=== PATIENT | male | born 1950 | race Asian ===

== ENCOUNTER 2020-04-23 17:12 | Observation (INO) | payer MEDICARE ==
[~2020-04-23] VITALS: Ht 167.6 cm; Wt 65.0 kg
--- NOTE | 2020-04-23 17:32 | PHYS DOC ---
General Adult EDM: Chief Complaint: NEURO SYMPTOMS/DEFICITS HPI: HPI: The history was obtained from the patient's daughter. Patient is a 69-year-old male with PMH TIA, diabetes who presents with a chief complaint of facial droop. Daughter states that the patient's last known well was approximately 30 hours prior to arrival. She states that her mother noticed left-sided facial droop and the patient. She states just prior to that he did have a fall. He does take Plavix daily for history of TIA. She states he does have some hearing loss and slurred speech at baseline from his previous TIA. She denies any complaints of chest pain or shortness of breath. She denies any signs of upper extremity or lower extremity weakness. She states he has been mildly confused not knowing time. She denies any lethargy. Denies syncope. Denies vomiting. Denies any changes to his medications. Denies any fevers. Denies any known exposure to c oronavirus. Denies any recent travel, camping, or hiking. (JAELYN JAEGER DO) Review of Systems: Review of Systems: Constitutional: Denies fever or chills Eyes: Denies change in visual acuity HENT: Denies nasal congestion or sore throat Respiratory: Denies cough or shortness of breath Cardiovascular: Denies chest pain or edema GI: Denies abdominal pain, nausea, vomiting, bloody stools or diarrhea : Denies dysuria Musculoskeletal: Denies back pain or joint pain Integument: Denies rash Neurologic: Positive for facial droop, aphasia Endocrine: Denies polyuria or polydipsia Lymphatic: Denies swollen glands Psychiatric: Denies depression or anxiety (JAELYN JAEGER DO) Heart Score: Risk Factors: Risk Factors: DM, Current or recent (<one month) smoker, HTN, HLP, family history of CAD, obesity. Risk Scores: Score 0 - 3: 2.5% MACE over next 6 weeks - Discharge Home Score 4 - 6: 20.3% MACE over next 6 weeks - Admit for Clinical Observation Score 7 - 10: 72.7% MACE over next 6 weeks - Early Invasive Strategies (JAELYN JAEGER DO) Physical Exam: PE: Constitutional: Well developed, well nourished, no acute distress, non-toxic appearance. [] HENT: Normocephalic, atraumatic, bilateral external ears normal, oropharynx moist, no oral exudates, nose normal. [] Eyes: PERRLA, EOMI, conjunctiva normal, no discharge. [] Neck: Normal range of motion, no tenderness, supple, no stridor. [] Cardiovascular:Heart rate regular rhythm, no murmur [] Lungs & Thorax: Bilateral breath sounds clear to auscultation [] Abdomen: Bowel sounds normal, soft, no tenderness, no masses, no pulsatile masses. [] Skin: Warm, dry, no erythema, no rash. [] Back: No tenderness, no CVA tenderness. [] Extremities: No tenderness, no cyanosis, no clubbing, ROM intact, no edema. [] Neurologic: Alert and oriented x2 only to person and place. Negative pronator drift. Plus 5 out of 5 motor strength in all 4 extremities. Partial gaze deviation to the left. No hemineglect appreciated however. Paralysis noted to the left face with forehead sparing. Psychologic: Affect normal, judgement normal, mood normal. [] (JAELYN JAEGER [facility]) Current Patient Data: Labs: Laboratory Tests Test 04/23/20 17:22 Glucose (Fingerstick) 132 mg/dL (70-99) H Vital Signs: Vital Signs Date Time Temp Pulse Resp B/P (MAP) Pulse Ox O2 Delivery O2 Flow Rate FiO2 04/23/20 17:35 98.0 69 14 154/77 (102) 98 Room Air (JAELYN JAEGER [facility]) Labs: Laboratory Tests Test 04/23/20 17:22 04/23/20 17:48 Glucose (Fingerstick) 132 mg/dL (70-99) White Blood Count 5.8 x10^3/uL (4.0-11.0) Red Blood Count 4.62 x10^6/uL (4.30-5.70) Hemoglobin 14.7 g/dL (13.0-17.5) Hematocrit 43.2 % (39.0-53.0) Mean Corpuscular Volume 93 fL (79-100) Mean Corpuscular Hemoglobin 32 pg (25-35) Mean Corpuscular Hemoglobin Concent 34 g/dL (31-37) Red Cell Distribution Width 14.1 % (11.5-14.5) Platelet Count 219 x10^3/uL (140-400) Neutrophils (%) (Auto) 63 % (31-73) Lymphocytes (%) (Auto) 28 % (24-48) Monocytes (%) (Auto) 7 % (0-9) Eosinophils (%) (Auto) 1 % (0-3) Basophils (%) (Auto) 1 % (0-3) Neutrophils # (Auto) 3.6 x10^3uL (1.8-7.7) Lymphocytes # (Auto) 1.6 x10^3/uL (1.0-4.8) Monocytes # (Auto) 0.4 x10^3/uL (0.0-1.1) Eosinophils # (Auto) 0.1 x10^3/uL (0.0-0.7) Basophils # (Auto) 0.1 x10^3/uL (0.0-0.2) Prothrombin Time 10.1 SEC (9.4-11.4) Prothromb Time International Ratio 1.0 (0.9-1.1) Activated Partial Thromboplast Time 23 SEC (23-33) Sodium Level 136 mmol/L (136-145) Potassium Level 4.3 mmol/L (3.5-5.1) Chloride Level 101 mmol/L (98-107) Carbon Dioxide Level 25 mmol/L (21-32) Anion Gap 10 (6-14) Blood Urea Nitrogen 15 mg/dL (8-26) Creatinine 1.1 mg/dL (0.7-1.3) Estimated GFR (Cockcroft-Gault) 66.2 BUN/Creatinine Ratio 14 (6-20) Glucose Level 135 mg/dL (70-99) Lactic Acid Level 2.3 mmol/L (0.4-2.0) Calcium Level 9.2 mg/dL (8.5-10.1) Total Bilirubin 0.8 mg/dL (0.2-1.0) Aspartate Amino Transf (AST/SGOT) 24 U/L (15-37) Alanine Aminotransferase (ALT/SGPT) 39 U/L (16-63) Alkaline Phosphatase 56 U/L (46-116) Troponin I Quantitative < 0.017 ng/mL (0-0.055) Total Protein 7.9 g/dL (6.4-8.2) Albumin 4.0 g/dL (3.4-5.0) Albumin/Globulin Ratio 1.0 (1.0-1.7) Salicylates Level < 2.8 mg/dL (2.8-20.0) Salicylate Last Dose Date None Salicylate Last Dose Time None Acetaminophen Level < 2.0 mcg/mL (10-30) Acetaminophen Last Dose Date None Acetaminophen Last Dose Time None Ethyl Alcohol Level < 10 mg/dL (0-10) (IVETH GUERRERO DO) EKG: EKG: [] EKG consistent with normal sinus rhythm. Left axis noted. Left anterior fascicular block present. No acute ischemic changes appreciated. Ventricular rate of 68 bpm. (JAELYN JAEGER DO) Radiology/Procedures: Radiology/Procedures: [][place] [address] IMAGING REPORT Signed PATIENT: JUAN R LEMON ACCOUNT: [id number] : 1950 LOCATION: ER AGE: 69 SEX: M EXAM STATUS: REG ER ORD. PHYSICIAN: JAELYN JAEGER DO REASON: L facial droop x 30 hours PROCEDURE: CT CODE STROKE HEAD WO EXAM: CT Head without IV contrast INDICATION: Reason: L facial droop x 30 hours / Spl. Instructions: / History: TECHNIQUE: Multi-detector row CT images were obtained of the head without the use of IV contrast. All CT scans performed at this facility utilize dose optimization techniques as appropriate to the exam, including the following: Automated exposure control and adjustment of the mA and/or KV according to patient size (this includes techniques or standardized protocols for targeted exams where dose is indication/reason for exam). COMPARISON: None FINDINGS: BRAIN PARENCHYMA: No evidence of acute intraparenchymal hemorrhage or infarct. Generalized parenchymal volume loss and white matter low density lateral chronic ischemic microvascular disease. Tiny chronic appearing lacunar infarct in the left basal ganglia. VENTRICLES & EXTRA-AXIAL SPACES: Ventricles are within normal limits. Basilar cisterns are patent. No pathologic extra-axial fluid collection or mass. Intracranial vascular calcifications are present, best appreciated in the bilateral vertebral arteries. ORBITS: Orbital contents are unremarkable. SINUSES: Visualized paranasal sinuses and mastoid air cells are clear. OSSEOUS & SOFT TISSUES: Calvarium and skull base are intact. Right cochlear implant is present, with associated streak artifact. IMPRESSION: No acute intracranial pathology. FOR INTERNAL CODING PURPOSES Critical result: Findings discussed with JAELYN JAEGER at 04/23/2020 5:39 PM. RESULT CODE: (C) Electronically signed by: Nixon Charles MD (04/23/2020 5:41 PM) [id number] DICTATED AND SIGNED BY: NIXON CHARLES MD DATE: 04/23/201740 CC: AMALIA LUTHER TELEVISION EQUIPMENT OPERATOR; JAELYN JAEGER DO ~ (JAELYN JAEGER DO) Course & Med Decision Making: Course & Med Decision Making Pertinent Labs and Imaging studies reviewed. (See chart for details) Patient is a 69-year-old male who presents with chief complaint of facial droop. Last known well was 30 hours prior to arrival. CT head imaging reveals no acute abnormality. Initial NIH of 8. Not a TPA candidate. Not in the window for large vessel occlusion retrieval. Basic labs are pending at this time. I have signed out the patient's emergency department care to Dr. Guerrero. We discussed the history, physical exam findings, completed and pending laboratory results and imaging studies. We have also discussed the current treatment plan and expected clinical course. Please refer to chart for the patient's remaining emergency department course, final disposition, and clinical impression(s). (JAELYN JAEGER DO) Course & Med Decision Making Comprehensive signout obtained from off going physician I personally saw and evaluated patient with daughter present who was primary historian, I repeated certain aspects of the history and physical examination Patient continues to have left lower facial paralysis but has somewhat improved since arrival to our ER per daughter I discussed grossly benign diagnostic work-up obtained in our ER today but stressed need for continued medical and neuro observation in a hospitalized setting, daughter was agreeable I called Dr. Andrea, neurologist, and case discussed. He requested CTA head and neck be performed and agreed to admission to [facility] so he can personally see and evaluate patient tomorrow morning On-call hospitalist, Dr. Gu, contacted and case discussed. I discussed my conversation with neurologist and need for admission and he was agreeable. Patient on metformin, Plavix, and 81 mg aspirin daily at this time only. This will be reviewed by neurologist tomorrow morning I discussed my conversations with daughter. She was amenable to admission. She is POA and confirm that he is DNR status CTA head and neck to be performed prior to ER departure to [facility] for further medical and neurological observation and care (IVETH GUERRERO DO) Dragon Disclaimer: Dragon Disclaimer: This electronic medical record was generated, in whole or in part, using a voice recognition dictation system. (JAELYN JAEGER DO) Departure Departure: Impression: Primary Impression: Facial droop Additional Impression: TIA (transient ischemic attack) Disposition: HOME/RESIDENCE PRIOR TO ADM Condition: STABLE Referrals: AMALIA LUTHER TELEVISION EQUIPMENT OPERATOR (PCP) Justification of Admission: Justification of Admission: Justification of Admission Dx: Yes Stroke - Ischemic: Stroke-Ischemic Comments: CVA (JAELYN JAEGER DO) Justification of Admission Dx: Yes (TIA, left facial paralysis) (IVETH GUERRERO DO) NIHSS - ED NIH Stroke Scale: NIH Stroke Scale Response (Comments) Value Level of Consciousness: 1 Not alert/arousable 1 LOC Questions: 1 Answers one correctly 1 LOC Commands: 0 Performs both tasks 0 Best Gaze: 1 Partial gaze palsy 1 Visual: 0 No visual loss 0 Facial Palsy: 3 Complete paralysis 3 Motor - Left Arm 0 No drift 0 Motor - Right Arm 0 No drift 0 Motor - Left Leg 0 No drift 0 Motor: Right Leg 0 No drift 0 Limb Ataxia: 0 Absent 0 Sensory: 0 No loss 0 Best Language: 1 Mild to mod aphasia 1 Dysathria: 1 Mild to moderate 1 Extinction and Inattention: 0 Normal 0 Total 8 JAELYN JAEGER DO Apr 23, 2020 17:32 IVETH GUERRERO DO Apr 23, 2020 19:10
--- NOTE | 2020-04-23 17:44 | RAD ---
EXAM: CT Head without IV contrast INDICATION: Reason: L facial droop x 30 hours / Spl. Instructions: / History: TECHNIQUE: Multi-detector row CT images were obtained of the head without the use of IV contrast. All CT scans performed at this facility utilize dose optimization techniques as appropriate to the exam, including the following: Automated exposure control and adjustment of the mA and/or KV according to patient size (this includes techniques or standardized protocols for targeted exams where dose is indication/reason for exam). COMPARISON: None FINDINGS: BRAIN PARENCHYMA: No evidence of acute intraparenchymal hemorrhage or infarct. Generalized parenchymal volume loss and white matter low density lateral chronic ischemic microvascular disease. Tiny chronic appearing lacunar infarct in the left basal ganglia. VENTRICLES & EXTRA-AXIAL SPACES: Ventricles are within normal limits. Basilar cisterns are patent. No pathologic extra-axial fluid collection or mass. Intracranial vascular calcifications are present, best appreciated in the bilateral vertebral arteries. ORBITS: Orbital contents are unremarkable. SINUSES: Visualized paranasal sinuses and mastoid air cells are clear. OSSEOUS & SOFT TISSUES: Calvarium and skull base are intact. Right cochlear implant is present, with associated streak artifact. IMPRESSION: No acute intracranial pathology. FOR INTERNAL CODING PURPOSES Critical result: Findings discussed with JAELYN JAEGER at 04/23/2020 5:39 PM. RESULT CODE: (C) Electronically signed by: Natali Charles MD (04/23/2020 5:41 PM) [id number]
--- NOTE | 2020-04-23 17:47 | EKG ---
[address] [address] Test Date: 2020-04-23 Test Time: 17:38:31 Pat Name: JUAN R LEMON Department: Room: Gender: M Legal Referee: : 1950 Requested By: JAELYN JAEGER Order Number: [id number] Reading MD: Measurements Intervals Chestnut Rate: 68 P: 90 VA: 164 QRS: -31 QRSD: 90 T: 52 QT: 408 QTc: 434 Interpretive Statements SINUS RHYTHM ABNORMAL LEFT AXIS DEVIATION LEFT ANTERIOR FASCICULAR BLOCK ABNORMAL ECG RI6.02 No previous ECG available for comparison
--- NOTE | 2020-04-23 18:08 | RAD ---
CHEST AP ONLY Clinical indications: Left facial droop. Mental status changes. COMPARISON: None available. 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 No acute lung infiltrate or pleural effusion or pulmonary edema or lung mass or pneumothorax is seen otherwise. The heart size is mildly prominent some of which is due to AP magnification. The pulmonary vasculature, mediastinum and both kai are otherwise unremarkable. Impression: No acute lung infiltrate. Electronically signed by: Baldemar Machado MD (04/23/2020 6:05 PM) [id number]
[2020-04-23 18:10] LABS: BASO # 0.1 x10^3/uL (0.0-0.2); BASO % 1 % (0-3); EOS # 0.1 x10^3/uL (0.0-0.7); EOS % 1 % (0-3); HEMATOCRIT 43.2 % (39.0-53.0); HEMOGLOBIN 14.7 g/dL (13.0-17.5); LYMPH # 1.6 x10^3/uL (1.0-4.8); LYMPH % 28 % (24-48); MEAN CORPUSCULAR HEMOGLOBIN 32 pg (25-35); MEAN CORPUSCULAR HGB CONC 34 g/dL (31-37); MEAN CORPUSCULAR VOLUME 93 fL (79-100); MONO # 0.4 x10^3/uL (0.0-1.1); MONO % 7 % (0-9); NEUT # 3.6 x10^3uL (1.8-7.7); NEUT % 63 % (31-73); PLATELET COUNT 219 x10^3/uL (140-400); RED BLOOD COUNT 4.62 x10^6/uL (4.30-5.70); RED CELL DISTRIBUTION WIDTH 14.1 % (11.5-14.5); WHITE BLOOD COUNT 5.8 x10^3/uL (4.0-11.0)
[2020-04-23 18:24] LABS: CALCIUM 9.2 mg/dL (8.5-10.1); CREATININE 1.1 mg/dL (0.7-1.3); GFR 66.2; POTASSIUM 4.3 mmol/L (3.5-5.1)
[2020-04-23 18:29] LABS: SALIC < 2.8 mg/dL (2.8-20.0); TOTAL BILIRUBIN 0.8 mg/dL (0.2-1.0); TOTAL PROTEIN 7.9 g/dL (6.4-8.2)
[2020-04-23 18:30] LABS: ACETAMIN < 2.0 mcg/mL (10-30); ETHANOL < 10 mg/dL (0-10)
[2020-04-23] MEDS ORDERED: IOHEXOL 350 MG/ML 100 ML VIAL. IV ONE (19:15)
--- NOTE | 2020-04-23 19:57 | NUR ---
PT swallowing assessed on arrival to unit. Family reports history of old TIA with some 'swallowing issues'. Daughter said the PCP was not concerned with his coughing with thin liquids prior to this admit. Pt does fine with THICK, shiv pudding no coughing, and nectar thick no coughing, however, thin water pt did cough. Will leave diet at thick liquids until speech can possibly evaluate patient. Nigel LUCIANO
[2020-04-23] MEDS ORDERED: ONDANSETRON PF 4 MG/2 ML VIAL. IVP PRN (20:00)
--- NOTE | 2020-04-23 20:04 | RAD ---
Examination: CT ANGIOGRAPHY HEAD AND NECK History: Reason: Left LOWER FACIAL PARALYSIS with droop: Omni 350 75cc / Spl. Instructions: / History: Comparison/Correlation: 04/23/2020 CT head without contrast EXAM: 1. CTA HEAD WITH AND WITHOUT CONTRAST. 2. CTA NECK WITH AND WITHOUT CONTRAST. TECHNIQUE: Computed tomographic angiography of the head and neck was performed following IV contrast according to arteriography protocol. Three-dimensional reconstructions were also performed. Maximum intensity projection images were provided. FINDINGS: Angiographic findings: The aortic arch has a typical branching pattern. There is no arch vessel stenosis. Both common carotid arteries are patent without stenosis. Both internal carotid arteries are patent without stenosis. The external carotid systems are patent. There is mild atherosclerotic calcific plaque involving the distal common carotid artery bilaterally along with the right carotid bulb. The vertebral arteries are patent. Only the dominant right vertebral artery contributes to the basilar artery. Developmental variant of the distal left vertebral artery seen. The basilar artery is patent. Both posterior cerebral arteries are patent. The posterior communicating arteries are visualized. The intracranial internal carotid arteries demonstrate no stenosis. The middle cerebral arteries are patent. The anterior cerebral arteries are patent. The anterior communicating artery is visualized. Nonangiographic findings: There is no intracranial hemorrhage. Harrison-white differentiation is preserved. The ventricles are normal in size and position. The paranasal sinuses appear clear. The orbits are unremarkable. The temporal bones are unremarkable. C5-6 disc space narrowing is present with minimal retrolisthesis of C5 in relation to C6. The lung apices demonstrate no acute abnormality. The parotid glands and submandibular glands are unremarkable. The thyroid gland demonstrates no suspicious lesions. There are no laryngeal or pharyngeal masses. There are no pathologically enlarged lymph nodes. IMPRESSION: No significant stenosis. No dissection or aneurysm identified. Mild atherosclerotic calcific plaque at the distal common carotid arteries in the right carotid bulb. PQRS Compliance Statement - Stenosis calculations for CT, MR and conventional angiography are based upon measurement of the distal ICA diameter in accordance with the NASCET methodology. Stenosis calculations for carotid ultrasound studies are derived from validated velocity criteria which are known to correlate with the NASCET methodology. *One or more of the following individualized dose reduction techniques were utilized for this examination: 1. Automated exposure control. 2. Adjustment of the mA and/or kV according to patient size. 3. Use of iterative reconstruction technique. Electronically signed by: Vicente Huerta MD (04/23/2020 8:01 PM) [id number]
[2020-04-23 22:29] VITALS: BP 167/74
--- NOTE | 2020-04-23 22:54 | NUR ---
Pt admitted to room 107 via EMS accompanied by ED staff and daughter. Pt does not speak Armenian. Daughter, Montserrat, was present when asking admission question and helped translate. Pt was calm and cooperative despite language barrier. Pt ambulated to bathroom w/ this nurse. Pt appears to have left sided weakness from previous TIA. Pt refuses to use walker to help with steading him during ambulation. Pt ambulates well w/ x1 assist. Pt's Daughter had home medications present during admit. Medication where recorded and handed back to daughter to take home. Pt has cochlear implant. Pt's daughter said that hearing aid was and decided to take it home. Pt will use call light for bathroom and does his best to communicate needs. Pt is now resting comfortably w/ call light in reach.
[2020-04-23] MEDS ORDERED: CLOP75TA57 PO (23:28)
[2020-04-23] MEDS ORDERED: ASPI-630 PO (23:28)
[2020-04-23] MEDS ORDERED: METF-551 PO (23:28)
[2020-04-24 05:12] VITALS: BP 186/80
[2020-04-24] MEDS ORDERED: CONTRAST GIVEN. MC PRN (07:15)
[2020-04-24 07:33] VITALS: BP 139/75
[2020-04-24] MEDS: ASPIRIN CHEWABLE 81 MG TABLET. PO SCH (09:00)
--- NOTE | 2020-04-24 10:30 | CONS ---
DATE OF CONSULTATION: 04/23/2020 NEUROLOGY CONSULTATION REASON FOR CONSULTATION: Rule out TIA versus stroke. REFERRING PHYSICIAN: Dr. Gavin. HISTORY OF PRESENT ILLNESS: This is a 69-year-old right-handed Sinhala male who was admitted through Emergency Room tonight after he presented with chief complaint of slurred speech, left facial drooping and intermittent confusion. The patient is a Sinhala male and he does not speak Yoruba; therefore, the communication done through his daughter, named Montserrat. She stated her father has been doing well until 30 hours prior to this admission when he found by her mother having left facial drooping with slurred speech. The patient did sustain a fall one day prior to this admission due to impaired balance resulted from previous TIA or stroke a year ago. According to his , the patient denies headaches, visual disturbances, nausea, vomiting, chest pain, shortness of breath or palpitation, dysphagia, or diplopia. In the Emergency Room, his blood pressure was 154/77. The patient could not communicate because of language barrier. The ER physician noticed left lower facial asymmetry with sparing the forehead and no focal weakness or sensory deficits. Initial nonenhanced head CT scan revealed chronic small vessel ischemic changes and old right basal ganglia infarct. CT angio of the neck and head revealed no evidence of significant carotid or intracranial artery stenosis, but it showed mild atherosclerotic calcific plaque at the distal common carotid arteries in the right carotid pulse. PAST MEDICAL HISTORY: Significant for TIA or stroke years ago resulted in balance impairment and possible falls, anxiety, and diabetes mellitus. FAMILY HISTORY: Noncontributory. SOCIAL HISTORY: The patient is . He is a smoker. CURRENT HOME MEDICATIONS: Aspirin 81 mg daily, Plavix 75 mg p.o. daily, and metformin 1 tablet ER b.i.d. ALLERGIES: No known drug allergies. REVIEW OF SYSTEMS: A 10-point review of system was performed as mentioned above in history of present illness. PHYSICAL EXAMINATION: GENERAL: Well-developed, well-nourished Sinhala male, not in acute distress. He weighs 65 kilos. VITAL SIGNS: Blood pressure 167/74, respiratory rate 18, pulse is 68, temperature 97.6, oxygen saturation 98% on room air. HEENT: Normocephalic, atraumatic, otherwise unremarkable. NECK: Supple. Negative for carotid bruit, lymphadenopathy or thyromegaly. LUNGS: Clear to A and P. CARDIOVASCULAR: Regular rate and rhythm, normal S1, S2. There is no S3, S4 or murmurs. ABDOMEN: Soft. Bowel sounds positive. EXTREMITIES: Negative for cyanosis, clubbing or pitting edema. NEUROLOGICAL EXAM: Mental Status: The patient is alert and oriented x 2 when his was there. There is a language barrier. Further evaluation is limited at this time. There is mild left lower facial asymmetry. CRANIAL NERVES: The pupils are equal and reactive to light and accommodation. The extraocular movements shows partial right abducent nerve palsy as the patient could not abduct his right eye completely compared to the left one. Hearing is diminished bilaterally. The palate is elevated symmetrically. Sternocleidomastoid muscles are powerful bilaterally. The patient shrugs his shoulders symmetrically, protrudes his tongue in the midline without fasciculation or atrophy. MOTOR: No focal muscle bulk was seen. The tone is normal. The strength is 5/5 throughout. SENSORY: Revealed normal pinprick and light touch senses throughout. Deep tendon reflexes were symmetric and hypoactive with absent Achilles responses. GAIT: The patient has abnormal tandem gait and he had broad-step gait to maintain his balance. He has tendency to fall when he turn around quickly. DIAGNOSTIC: A head CT scan, CT angio of the head and neck as described above in the history of present illness. Chest x-ray revealed no acute cardiopulmonary process. EKG revealed normal sinus rhythm with left anterior fascicular block present. LABORATORY DATA: CBC revealed white blood cells of 5.8 thousand, hemoglobin 14.7, hematocrit 43.2, platelet count 219,000. Chemistry revealed sodium of 136, potassium 4.3, chloride 101, CO2 of 25, BUN 15, creatinine 1.1, glucose 135. Liver enzymes are normal. Troponin level is normal. Toxicology is negative. IMPRESSION: 1. 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 2. Previous transient ischemic attack or stroke a year ago resulted in impaired balance and gait disturbances. 3. Multiple medical problems including bilateral hearing loss, diabetes mellitus. RECOMMENDATIONS: 1. Continue with current management with Plavix and aspirin. 2. Treat the underlying diabetes mellitus. 3. Physical therapy evaluation. M Adeola REDDY MD DR: MADAN/cr JOB#: [id number] / [id number]
[2020-04-24 10:42] VITALS: BP 139/80
[2020-04-24 14:12] VITALS: BP 143/72
[2020-04-24 19:25] VITALS: BP 122/72
--- NOTE | 2020-04-24 20:43 | HP ---
ADMIT DATE: HISTORY OF PRESENT ILLNESS: The patient is a 69-year-old right-handed Serbian Turkmen male patient who was admitted to the Emergency Room last night with a chief complaint of slurred speech, left facial drooping and intermittent confusion. He is a Serbian male and he does not speak Maltese; however, his daughter stated that she noted that he has left facial droop. He was also unsteady and he fell on Wednesday. The patient did sustain a fall one day prior to admission due to impaired balance resulted from previous TIA or stroke a year ago. According to his , the patient denies headaches, visual disturbances, nausea, vomiting, chest pain, shortness of breath, palpitation or diplopia. In the Emergency Room, his blood pressure was fine at 154/77. 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 CT angio of the neck and head revealed no evidence of significant carotid or intracranial artery stenosis, but it showed mild atherosclerotic calcific plaques at the distal common carotid arteries and the right carotid pulse. PAST MEDICAL HISTORY: Significant for type 2 diabetes, hypertension, hyperlipidemia. His past medical history also included transient ischemic attack with resultant dysphagia after that and impaired balance. He had also sensorineural deafness. PAST SURGICAL HISTORY: Significant for cochlear implant and appendectomy. ALLERGIES: He has no known drug allergies. MEDICATIONS: He is currently on following medications: He is on Plavix 75 mg once a day, aspirin 81 mg once a day, metformin 1000 mg extended release twice a day. FAMILY HISTORY: He has 2 sisters and 2 brothers, all younger and still living in [facility]. His father is still alive at the age of 99. His mother at age of 85. SOCIAL HISTORY: He is , has 1 daughter and 1 son. He is an ex-smoker and ex-alcohol drinker. Does not use any drugs. 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 REVIEW OF SYSTEMS: The patient denied any blurring of vision, glaucoma or macular degeneration. Denied any diplopia. 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 Denied any nosebleeds, stuffy nose or postnasal drip. Denied any sore throat, sore tongue, toothache, hoarseness of voice. Did complain of difficulty swallowing, but denied any weight loss. Denied any nausea, vomiting, diarrhea or constipation. Denied any hematemesis, melena or hematochezia. Denied any dysuria, frequency or hematuria. Did complain of nocturia 3 times. He denied any chest pain, shortness of breath, orthopnea or paroxysmal nocturnal dyspnea. Denied any dizziness or lightheadedness; however, his daughter said that he is unsteady on his feet and used to be able to walk with a cane after his TIA and recently had a fall a day before he was admitted here. PHYSICAL EXAMINATION: GENERAL: On examining him, the patient looked well and was clearly in no apparent respiratory distress. There was no pallor, jaundice, cyanosis or thyromegaly. No jugular venous distention. No lower limb edema. VITAL SIGNS: His heart rate was 58, blood pressure 143/72, temperature was 97.9, respiratory rate was 20 and oxygen saturation was 98% on room air. HEAD, EYES, EARS, NOSE AND THROAT: Showed normocephalic, atraumatic. NECK: Supple. HEART: Showed normal first and second heart sounds. No gallop or murmur. CHEST: Clear to auscultation. No crepitation or rhonchi. ABDOMEN: Distended, soft, nontender. NEUROLOGIC: He is awake, alert, responding appropriately. He does seem to have right-sided sixth nerve palsy as he is unable to adduct his right eye and probably left-sided third nerve palsy, is unable to adduct his left eye. However, all other cranial nerves are intact. He denied any diplopia. His strength in both upper and lower extremities is normal; however, his Romberg test was negative. He was unsteady. I could not really do further evaluation on same day as he nearly fallen when he stood with both feet together and eyes closed. LABORATORY DATA: Showed that his white cell count was 5800, hemoglobin 14.7, hematocrit 43, MCV 93, and platelet count 219,000. His chemistry showed a serum sodium 136, potassium 4.3, chloride 101, bicarbonate 25, anion gap of 10, BUN 15, creatinine 1.1. Estimated GFR was 66 mL per minute, his glucose 135, lactic acid was slightly elevated at 2.3. His calcium was 9.2. Total bilirubin, AST, ALT, alkaline phosphatase were normal. His total protein was 7.9, albumin was 4. His prothrombin time, INR and aPTT were normal and toxic screen was essentially unremarkable. DIAGNOSTIC DATA: CT scan of the head showed that there is no evidence of acute intraparenchymal hemorrhage or infarct, generalized parenchymal volume loss and white matter low density, lateral chronic ischemic microvascular disease, tiny chronic appearing lacunar infarct in the left basal ganglia. The ventricles and extra-axial spaces are within normal limits. Basilar cisterns are patent. No pathological extra-axial fluid collection or mass. Intracranial vascular calcifications are present, best appreciated in the bilateral vertebral arteries. The orbital contents are unremarkable. Visualized paranasal sinuses and mastoid air cells are clear. The calvarium and skull base are intact. Right cochlear implant is present with associated streak artifact. He did have also a chest x-ray, which was unremarkable and his CT angio basically showed that the aortic arch is a typical branching pattern. There is no arch vessel stenosis. Both common carotid arteries are patent without stenosis. Both internal carotid arteries are patent without stenosis. The external carotid system is patent. There is mild atherosclerotic calcific plaque involving the right distal common carotid artery bilaterally along with the right carotid bulb. The vertebral arteries are patent, only the dominant right vertebral artery contributes to the basilar artery. Developmental variant of the distal left vertebral artery seen. The basilar artery is patent. The posterior cerebral arteries are patent. The posterior communicating arteries are visualized. The intracranial internal carotid arteries could demonstrate no stenosis. The middle cerebral arteries are patent. The anterior cerebral arteries are patent. The anterior communicating artery is visualized. None angiographic finding. There is no intracranial hemorrhage. Harrison-white differentiation is preserved. The ventricles are normal in size and position. The paranasal sinuses appear clear. The orbits are unremarkable. The temporal bones are unremarkable. C5-C6 disk space narrowing is present with minimal retrolisthesis of C5. In relation to C6, the lung apices demonstrates no acute abnormality. The parotid glands are submandibular. Glands are unremarkable. The thyroid gland demonstrates no suspicious lesion. There are no laryngeal or pharyngeal masses. There are no pathologically enlarged lymph nodes. The patient apparently was extensively investigated before at [facility] in [place] and was extensively investigated. 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 Plan is to start Plavix and Pletal per his doctor there. At that time, he was admitted with hearing loss and unsteady gait for 3 days and was diagnosed with acute onset of bilateral hearing loss and dysequilibrium. At that time, he was started on atorvastatin that he is now without it. 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 I will probably arrange for him to have a fasting lipid profile and I am not sure he is a candidate for MRI given that he has cochlear implant and the patient can be discharged home. He probably requires a walker and perhaps physical and occupational therapy. NICOLAS ABREU MD DR: BETTY/cr JOB#: [id number] / [id number]
[2020-04-24] MEDS ORDERED: NYSTATIN TOPICAL POWDER 15GM BOTTLE. TP SCH (21:00)
[2020-04-24 23:30] VITALS: BP 137/73
[2020-04-25 05:39] VITALS: BP 147/74
[2020-04-25] MEDS: ASPIRIN CHEWABLE 81 MG TABLET. PO SCH (07:52)
[2020-04-25 10:54] LABS: ALBUMIN 3.7 g/dL (3.4-5.0); CALCIUM 8.8 mg/dL (8.5-10.1); CREATININE 1.3 mg/dL (0.7-1.3); GFR 54.6; POTASSIUM 3.8 mmol/L (3.5-5.1); TOTAL BILIRUBIN 0.7 mg/dL (0.2-1.0); TOTAL PROTEIN 7.5 g/dL (6.4-8.2)
--- NOTE | 2020-04-25 11:55 | PN ---
DATE: SUBJECTIVE: The patient is a Estonian male and cannot speak Belizean. According to his daughter, the patient has not had any new neurological complaints. Reviewing old chart revealed that the patient was admitted to a hospital in [place] a year ago and had extensive stroke workup including CT angio of the brain and neck, which revealed 80-90% luminal stenosis of the cavernous sinus segment of the left carotid artery and 70-80% luminal stenosis of the cavernous sinus segment of the right internal carotid artery. Apparently, the patient was treated conservatively with Plavix and Pletal. The patient could have had interventional aggressive treatment with stenting procedures which has not been done for probably other clinical consideration. OBJECTIVE: GENERAL: Well-developed, well-nourished, Estonian male, not in acute distress. VITAL SIGNS: Blood pressure 147/74, respiratory rate 20, pulse is 63 and regular, temperature 97.8, oxygen saturation 96% on room air. HEENT: Normocephalic, atraumatic, otherwise unremarkable. NECK: Supple. Negative for carotid bruit, lymphadenopathy or thyromegaly. LUNGS: Clear to A and P. CARDIOVASCULAR: Regular rate and rhythm, normal S1, S2. ABDOMEN: Soft. Bowel sounds positive. EXTREMITIES: Negative for cyanosis, clubbing or edema. NEUROLOGICAL EXAMINATION: Mental status: The patient is alert, follows 1-step command, but because of language barrier, therefore, further evaluation is limited at this time. Cranial nerves consistent with right abducens and cecelia-ocular nerve paralysis, probably due to previous stroke. Motor examination: No focal muscle bulk was seen. The tone is normal. The strength is 5/5 throughout. Sensory examination revealed normal pinprick and light touch senses throughout. Deep tendon reflexes were symmetric and hypoactive with absent Achilles responses. Gait: The patient has a broad step gait, but he has tendency to fall. The tandem gait is difficult. IMPRESSION: 1. 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 2. Multiple medical problems include diabetes mellitus type 2, hypertension, hyperlipidemia and previous stroke. RECOMMENDATIONS: 1. Continue with aspirin and Plavix. 2. Treat the underlying medical conditions. 3. Physical therapy evaluation. The patient may need to use a walker for ambulation. M Adeola REDDY MD DR: Khurram JOB#: [id number] / [id number]
--- NOTE | 2020-04-25 12:20 | PN ---
DATE: SUBJECTIVE: The patient is a Yi man, does not speak Yemeni; however, I have a chance to meet his daughter, Montserrat and discussed the whole situation in details. The daughter report previous records from [facility] in [place], [place], which showed extensive workup for stroke, he had a year ago. The patient had a CT angio of the head and brain, which revealed evidence of 80-90% stenosis of the cavernous sinus segment of the left carotid artery and 70-80% stenosis of the cavernous sinus segment of the right internal carotid artery. At that time, the patient was treated conservatively, but did not have any vascular intervention as stenting procedures. According to his daughter as a medical laboratory technologist, he does not have any headaches, chest pain, shortness of breath or palpitation, dysarthria or dysphagia. OBJECTIVE: GENERAL: Well-developed, well-nourished a Yi male, not in acute distress. VITAL SIGNS: Blood pressure 139/75, respiratory rate 20, pulse is 55, oxygen saturation is 97% on room air, and temperature 97.8. HEENT: Normocephalic, atraumatic, otherwise unremarkable. NECK: Supple. Negative for carotid bruit, lymphadenopathy or thyromegaly. LUNGS: Clear to A and P. CARDIOVASCULAR: Regular rate and rhythm. Normal S1, S2. There is no S3, S4 or murmur. ABDOMEN: Soft. Bowel sounds positive. EXTREMITIES: Negative for cyanosis, clubbing or edema. NEUROLOGICAL EXAM: Mental Status: The patient appeared to be alert and oriented to himself. He does not speak Yemeni, but his daughter. He denies diplopia, but he sometimes have dysphagia for solid food. He denies hallucination or delusion. Cranial nerves are unremarkable except for partial right abducens and motor ocular cranial nerves paralysis. Motor examination: No focal motor or sensory deficit. Deep tendon reflexes were symmetric and hypoactive with absent Achilles responses. Gait: The patient has unsteady tandem gait and had risks for falls. IMPRESSION: 1. 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 2. Multiple medical problems include hypertension, hyperlipidemia and diabetes mellitus. 3. Bilateral hearing loss and status post cochlear implant. RECOMMENDATIONS: 1. Continue with current management with aspirin and Plavix. 2. Physical therapy evaluation and possible need for a walker. 3. Treat the underlying other medical conditions. M Adeola REDDY MD DR: MADAN/cr JOB#: [id number] / [id number]
[2020-04-25] MEDS ORDERED: ATOR20TA PO (14:26)
--- NOTE | 2020-04-25 14:56 | DS ---
DATE OF DISCHARGE: 04/23/2020 HOSPITAL COURSE: The patient is a 69-year-old Greek Finnish male patient who was admitted with unsteady gait and left facial droop. He apparently was extensively investigated before and has had a CT angio of the head and neck, his CT angio at [facility] revealed 80-90% luminal stenosis involving the cavernous sinus segment of the left carotid artery and 70-80% luminal stenosis involving the cavernous sinus segment of the right internal carotid artery. The patient at that time, he also admitted to hearing loss and unsteady gait for 3 days and was diagnosed with acute onset of bilateral hearing loss and dysequilibrium. He was started on atorvastatin. He has clear findings of bilateral cranial nerve paralysis without any diplopia, seems to be longstanding and therefore, a decision was made to discharge him home with home health. This could be the right abducens nerve paralysis and left trochlear nerve paralysis, likely based on diabetic mononeuropathy versus ischemia. The patient definitely did not complain of diplopia, but he is very unsteady and he might do well with walker. PHYSICAL EXAMINATION: GENERAL: When I examined him today, he looked well and was clearly in no apparent distress, there is no pallor, jaundice, cyanosis or thyromegaly. No jugular venous distention. No limb edema. VITAL SIGNS: His heart rate was 63, blood pressure 147/74, temperature 97.8, respiratory rate 20, and oxygen saturation was 96%. HEAD, EYES, EARS, NOSE AND THROAT: Showed normocephalic, atraumatic. NECK: Supple. HEART: Showed normal normal first and second heart sounds. No gallop, rub or murmur. CHEST: Clear to auscultation. No crepitation or rhonchi. ABDOMEN: Distended, soft, nontender. No guarding or rigidity. No organomegaly. All hernial orifice intact. Bowel sounds normal. NEUROLOGIC: He was awake, alert. He does have a left fourth cranial nerve paralysis and right sixth nerve paralysis. However, he denied any diplopia. He has slight mild bilateral ptosis. However, his Romberg test was positive. His intake was 1440. LABORATORY DATA: His labwork this morning showed his serum sodium was 139, potassium 3.8, chloride 102, bicarbonate 27, anion gap of 10, BUN 15, creatinine 1.3, estimated GFR was 54 mL per minute. His glucose was 334, calcium was 8.8. Total bilirubin, AST, ALT, alkaline phosphatase were normal. Total protein 7.5, albumin was 3.7. His prothrombin time, INR and aPTT are normal. ASSESSMENT: 1. Had transient ischemic attack or stroke, resulted in gait disturbance right fourth and sixth cranial nerve paralysis, multiple medical problems includin. Hypertension. 3. Hyperlipidemia. 4. Type 2 diabetes. 5. Bilateral hearing loss, status post cochlear implant. NICOLAS ABREU MD DR: BETTY/cr JOB#: [id number] / [id number]
--- NOTE | 2020-04-25 15:35 | NUR ---
NURSING NOTE DISCHARGE PT DISCHARGED HOME WITH HOME HEALTH VIA WHEELCHAIR ACCOMPANIED BY SON. PT SON GIVEN WRITTEN AND VERBAL DISCHARGE INSTRUCTIONS. PT INSTRUCTED TO FOLLOW UP WITH NEUROLOGY [phone] DR REDDY, DR REDDY OFFICE CONTACTED FOR FOLLOW UP APPT, DR REDDY HIMSELF ANSWERED STATING THAT THEY OFFICE WILL CONTACT THE PT FOR FOLLOW UP. PT ALSO HAS ORDER FOR SWALLOW STUDY EVAL AND TREAT. PT INSTRUCTED TO CONTINUE HOME MEDICATIONS IN ADDITION TO LIPITOR. NO COMPLICATIONS. ANKITA KAUFMAN.
[2020-04-26] MEDS ORDERED: metFORMIN XR 500 MG TAB.ER.24H PO SCH (09:00)
== END 2020-04-25 15:41 | disposition home health service (06) ==
LOC: ER 17:12 → 1 SOUTH 19:36
PROVIDERS: ADMIT Hospitalist; ATTEND Internal Medicine
DX: G45.9 Transient cerebral ischemic attack, unspecified (principal); R29.810 Facial weakness; I10 Essential (primary) hypertension; E11.9 Type 2 diabetes mellitus without complications; E78.5 Hyperlipidemia, unspecified; H90.3 Sensorineural hearing loss, bilateral; H49.11 Fourth [trochlear] nerve palsy, right eye; H49.21 Sixth [abducent] nerve palsy, right eye; F41.9 Anxiety disorder, unspecified; Z79.02 Long term (current) use of antithrombotics/antiplatelets; Z79.82 Long term (current) use of aspirin; Z79.84 Long term (current) use of oral hypoglycemic drugs; Z79.899 Other long term (current) drug therapy; Z87.891 Personal history of nicotine dependence; W19.XXXA Unspecified fall, initial encounter; Y93.89 Activity, other specified; Y92.89 Other specified places as the place of occurrence of the external cause; Y99.8 Other external cause status
CPT/HCPCS: 36415; 70450; 70496; 70498; 71045; 80053; 80061; 80329; 82947; 83036; 83605; 84484; 85025; 85610; 85730; 92610; 93005; 97116; 97162; 97165; 97530; 99285; G0378; G0480; Q9967; G0379

== ENCOUNTER → 2020-09-13 | Outpatient (CLI) | payer MEDICARE ==
[~2020-09-13] MED LIST: ASPI-630 PO; ATOR20TA PO; CLOP75TA57 PO; METF-639 PO
[2020-09-13 11:12] LABS: ALBUMIN 4.3 g/dL (3.4-5.0); ALBUMIN/GLOBULIN RATIO 1.1 (1.0-1.7); CALCIUM 9.2 mg/dL (8.5-10.1); CREATININE 0.9 mg/dL (0.7-1.3); GFR 83.2; POTASSIUM 3.9 mmol/L (3.5-5.1); TOTAL BILIRUBIN 0.6 mg/dL (0.2-1.0); TOTAL PROTEIN 8.3 g/dL (6.4-8.2)
[2020-09-13 11:13] LABS: BASO # 0.1 x10^3/uL (0.0-0.2); BASO % 1 % (0-3); EOS # 0.1 x10^3/uL (0.0-0.7); EOS % 2 % (0-3); HEMATOCRIT 42.2 % (39.0-53.0); LYMPH # 1.6 x10^3/uL (1.0-4.8); LYMPH % 25 % (24-48); MEAN CORPUSCULAR HEMOGLOBIN 32 pg (25-35); MEAN CORPUSCULAR HGB CONC 33 g/dL (31-37); MEAN CORPUSCULAR VOLUME 96 fL (79-100); MONO # 0.7 x10^3/uL (0.0-1.1); MONO % 11 % (0-9); NEUT # 3.9 x10^3uL (1.8-7.7); NEUT % 62 % (31-73); PLATELET COUNT 250 x10^3/uL (140-400); RED BLOOD COUNT 4.39 x10^6/uL (4.30-5.70); RED CELL DISTRIBUTION WIDTH 14.5 % (11.5-14.5); WHITE BLOOD COUNT 6.3 x10^3/uL (4.0-11.0)
[2020-09-13 11:14] LABS: BACTERIA,URINE 0 /HPF (0-FEW); BILIRUBIN,URINE NEG (NEG); CLARITY,URINE CLEAR; COLOR,URINE YELLOW; GLUCOSE,URINE NEG (NEG); NITRITE,URINE NEG (NEG); RBC,URINE 0 /HPF (0-2); SQUAMOUS EPITHELIAL CELL,UR OCC /LPF; UROBILINOGEN,URINE 0.2 mg/dL (0.2 mg/dL); WBC,URINE OCC /HPF (0-4)
[2020-09-13 20:02] LABS: FREE T4 1.11 ng/dL (0.76-1.46); THYROID STIM HORMONE (TSH) 4.137 uIU/mL (0.358-3.740)
[2020-09-14 01:26] LABS: HEMOGLOBIN A1C 6.4 % (4.8-5.6)
== END ==
LOC: LAB 09:35
PROVIDERS: ATTEND Nurse Practitioner Adult Health
DX: Z00.01 Encounter for general adult medical examination with abnormal findings (principal); E78.00 Pure hypercholesterolemia, unspecified; E11.65 Type 2 diabetes mellitus with hyperglycemia; E55.9 Vitamin D deficiency, unspecified; E78.5 Hyperlipidemia, unspecified; R53.1 Weakness; M62.9 Disorder of muscle, unspecified; R53.0 Neoplastic (malignant) related fatigue
CPT/HCPCS: 36415; 80053; 80061; 81001; 82306; 83036; 84439; 84443; 85025

== ENCOUNTER 2021-08-27 10:57 | Emergency (ER) | payer MEDICARE ==
[~2021-08-27] VITALS: Ht 167.6 cm; Wt 65.0 kg
[2021-08-27 12:13] LABS: BASO # 0.1 x10^3/uL (0.0-0.2); BASO % 1 % (0-3); EOS % 1 % (0-3); HEMATOCRIT 37.8 % (39.0-53.0); HEMOGLOBIN 12.8 g/dL (13.0-17.5); LYMPH # 1.4 x10^3/uL (1.0-4.8); LYMPH % 23 % (24-48); MEAN CORPUSCULAR HEMOGLOBIN 33 pg (25-35); MEAN CORPUSCULAR HGB CONC 34 g/dL (31-37); MEAN CORPUSCULAR VOLUME 97 fL (79-100); MONO # 0.6 x10^3/uL (0.0-1.1); MONO % 9 % (0-9); NEUT # 4.2 x10^3uL (1.8-7.7); NEUT % 66 % (31-73); PLATELET COUNT 287 x10^3/uL (140-400); RED BLOOD COUNT 3.89 x10^6/uL (4.30-5.70); RED CELL DISTRIBUTION WIDTH 13.9 % (11.5-14.5); WHITE BLOOD COUNT 6.3 x10^3/uL (4.0-11.0)
[2021-08-27 12:19] LABS: CALCIUM 8.9 mg/dL (8.5-10.1); CREATININE 0.9 mg/dL (0.7-1.3); GFR 82.9; POTASSIUM 3.9 mmol/L (3.5-5.1)
[2021-08-27 12:24] LABS: ALBUMIN 4.3 g/dL (3.4-5.0); ALBUMIN/GLOBULIN RATIO 1.2 (1.0-1.7); TOTAL BILIRUBIN 0.5 mg/dL (0.2-1.0); TOTAL PROTEIN 7.8 g/dL (6.4-8.2)
[2021-08-27 12:25] LABS: ACETAMIN < 2.0 mcg/mL (10-30); ETHANOL < 10 mg/dL (0-10); SALIC 0.6 mg/dL (2.8-20.0)
--- NOTE | 2021-08-27 13:17 | EKG ---
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
[2021-08-27 17:46] LABS: AMPHETAMINE/METHAMPHETAMINE NEG (NEG); BARBITURATES NEG (NEG); BENZODIAZEPINES NEG (NEG); CANNABINOIDS NEG (NEG); COCAINE NEG (NEG); METHADONE NEG (NEG); OPIATES NEG (NEG); PHENCYCLIDINE NEG (NEG)
[2021-08-27 18:01] LABS: BACTERIA,URINE 0 /HPF (0-FEW); BILIRUBIN,URINE NEG (NEG); CLARITY,URINE CLEAR; COLOR,URINE YELLOW; GLUCOSE,URINE 100 mg/dL (NEG); NITRITE,URINE NEG (NEG); RBC,URINE RARE /HPF (0-2); SQUAMOUS EPITHELIAL CELL,UR OCC /LPF; UROBILINOGEN,URINE 0.2 mg/dL (0.2 mg/dL); WBC,URINE RARE /HPF (0-4)
--- NOTE | 2021-08-27 20:22 | PHYS DOC ---
Past History Past Medical History: Diabetes, TIA Additional Past Medical Histor: hearing (MIRANDA BATISTA APRN) Past Surgical History: Other Additional Past Surgical Histo: hearing (MIRANDA BATISTA APRN) Alcohol Use: None (MIRANDA BATISTA APRN) Adult General Chief Complaint Chief Complaint: PSYCH EVALUATION HPI HPI Limited HPI related to patient is Telugu speaking, old CVA, speaks in gibberish per studio potter. Patient is a 71-year-old male who presents to the emergency department with daughter at bedside with chief complaint of needing a Makenna psych evaluation. Patient's daughter reports patient has been yelling and screaming during the morning time, afternoon, nighttime. Reports he is scared that his daughter and his son are trying to kill him. Does not not want to eat because he fears the food is poisoned. Does not want to use the restroom because he fears he may . Patient is Telugu speaking however is speaking in gibberish per studio potter. Patient does have cochlear implants and is hard of hearing per geri arreguin's report. Patient daughter states they were at Dr. Andrea's office for an EEG and Dr. Andrea recommended he come to the emergency department for Makenna psych evaluation. 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 Patient's daughter reports the patient is and is at home. Denies any recent illnesses of her father. Denies other physical complaints or physical concerns. (MIRANDA BATISTA APRN) Review of Systems Review of Systems 14 body systems of review of systems have been reviewed. See HPI for pertinent positives and negative responses, otherwise all other systems are negative, nonpertinent or noncontributory. Constitutional: Negative except as outlined in HPI above. Skin: Negative except as outlined in HPI above. Eyes: Negative except as outlined in HPI above. HENT: Negative except as outlined in HPI above. Respiratory: Negative except as outlined in HPI above. Cardiovascular: Negative except as outlined in HPI above. GI: Negative except as outlined in HPI above. : Negative except as outlined in HPI above. Musculoskeletal: Negative except as outlined in HPI above. Integument: Negative except as outlined in HPI above. Neurologic: Negative except as outlined in HPI above. Endocrine: Negative except as outlined in HPI above. Lymphatic: Negative except as outlined in HPI above. Psychiatric: Negative except as outlined in HPI above. (MIRANDA BATISTA APRN) Allergies Allergies Allergies Coded Allergies Type Severity Reaction Last Updated Verified No Known Drug Allergies 04/23/20 No (MIRANDA BATISTA APRN) Physical Exam Physical Exam Constitutional: Well developed, well nourished, no acute distress, non-toxic appearance. 71-year-old male in no apparent distress. HENT: Normocephalic, atraumatic. Eyes: Conjunctiva normal, no discharge. Neck: Normal range of motion, no stridor. Cardiovascular: No cyanosis appreciated, distal cap refill less than 2 seconds. Lungs & Thorax: Patient is in no respiratory distress, no audible adventitious lung sounds appreciated. Abdomen: No pain elicited with palpation., no abnormalities noted. Skin: Warm, dry, no erythema, no rash. Back: No tenderness, no deformities. Extremities: No tenderness, no cyanosis, no clubbing, ROM intact, no edema. Neurologic: Alert and oriented X 0, patient speaks in gibberish, primary language is Telugu however Telugu studio potter unable to understand patient, normal motor function, normal sensory function, no focal deficits noted. Psychologic: Affect normal, judgement normal, mood normal. (MIRANDA BATISTA APRN) Current Patient Data Vital Signs Vital Signs Date Time Temp Pulse Resp B/P (MAP) Pulse Ox O2 Delivery O2 Flow Rate FiO2 08/27/21 15:48 79 16 128/60 (82) 99 Room Air 08/27/21 11:26 98.2 Lab Results Laboratory Tests Test 08/27/21 11:53 08/27/21 11:55 08/27/21 16:43 White Blood Count 6.3 x10^3/uL (4.0-11.0) Red Blood Count 3.89 x10^6/uL (4.30-5.70) L Hemoglobin 12.8 g/dL (13.0-17.5) L Hematocrit 37.8 % (39.0-53.0) L Mean Corpuscular Volume 97 fL (79-100) Mean Corpuscular Hemoglobin 33 pg (25-35) Mean Corpuscular Hemoglobin Concent 34 g/dL (31-37) Red Cell Distribution Width 13.9 % (11.5-14.5) Platelet Count 287 x10^3/uL (140-400) Neutrophils (%) (Auto) 66 % (31-73) Lymphocytes (%) (Auto) 23 % (24-48) L Monocytes (%) (Auto) 9 % (0-9) Eosinophils (%) (Auto) 1 % (0-3) Basophils (%) (Auto) 1 % (0-3) Neutrophils # (Auto) 4.2 x10^3uL (1.8-7.7) Lymphocytes # (Auto) 1.4 x10^3/uL (1.0-4.8) Monocytes # (Auto) 0.6 x10^3/uL (0.0-1.1) Eosinophils # (Auto) 0.0 x10^3/uL (0.0-0.7) Basophils # (Auto) 0.1 x10^3/uL (0.0-0.2) Sodium Level 130 mmol/L (136-145) L Potassium Level 3.9 mmol/L (3.5-5.1) Chloride Level 96 mmol/L (98-107) L Carbon Dioxide Level 23 mmol/L (21-32) Anion Gap 11 (6-14) Blood Urea Nitrogen 16 mg/dL (8-26) Creatinine 0.9 mg/dL (0.7-1.3) Estimated GFR (Cockcroft-Gault) 82.9 BUN/Creatinine Ratio 18 (6-20) Glucose Level 112 mg/dL (70-99) H Calcium Level 8.9 mg/dL (8.5-10.1) Total Bilirubin 0.5 mg/dL (0.2-1.0) Aspartate Amino Transferase (AST) 29 U/L (15-37) Alanine Aminotransferase (ALT) 46 U/L (16-63) Alkaline Phosphatase 46 U/L (46-116) Total Protein 7.8 g/dL (6.4-8.2) Albumin 4.3 g/dL (3.4-5.0) Albumin/Globulin Ratio 1.2 (1.0-1.7) Salicylates Level 0.6 mg/dL (2.8-20.0) L Salicylate Last Dose Date Unknown Salicylate Last Dose Time Unknown Acetaminophen Level < 2.0 mcg/mL (10-30) L Acetaminophen Last Dose Date Unknown Acetaminophen Last Dose Time Unknown Ethyl Alcohol Level < 10 mg/dL (0-10) SARS-CoV-2 Antigen (Rapid) Negative (NEGATIVE) Urine Collection Type Unknown Urine Color Yellow Urine Clarity Clear Urine pH 6.0 Urine Specific Strong 1.020 Urine Protein Neg (NEG-TRACE) Urine Glucose (UA) 100 mg/dL (NEG) Urine Ketones (Stick) 15 mg/dL (NEG) Urine Blood Neg (NEG) Urine Nitrite Neg (NEG) Urine Bilirubin Neg (NEG) Urine Urobilinogen Dipstick 0.2 mg/dL (0.2 mg/dL) Urine Leukocyte Esterase Neg (NEG) Urine RBC Rare /HPF (0-2) Urine WBC Rare /HPF (0-4) Urine Squamous Epithelial Cells Occ /LPF Urine Bacteria 0 /HPF (0-FEW) Urine Mucus Marked /LPF Urine Opiates Screen Neg (NEG) Urine Methadone Screen Neg (NEG) Urine Barbiturates Neg (NEG) Urine Phencyclidine Screen Neg (NEG) Urine Amphetamine/Methamphetamine Neg (NEG) Urine Benzodiazepines Screen Neg (NEG) Urine Cocaine Screen Neg (NEG) Urine Cannabinoids Screen Neg (NEG) Urine Ethyl Alcohol Neg (NEG) (MIRANDA BATISTA APRN) EKG EKG EKG performed at 1140 by ED nursing staff shows a normal sinus rhythm without other ectopy, heart rate 74 bpm, HI interval 0.164, QTc interval at 436, no acute STEMI, no ACS, no acute ischemia appreciated, EKG interpreted by ED attending physician Dr. Celaya. (MIRANDA BATISTA APRN) Radiology/Procedures Radiology/Procedures REASON: Mental status changes PROCEDURE: CT HEAD WO CONTRAST CT brain without contrast. HISTORY: Mental status change CT scan of the brain was done without contrast. Sinuses are clear. A skull fracture is not identified. There is artifact off the device on the right there is no intracranial hemorrhage or subdural hematoma. There is no mass effect or shift of the midline. Ventricles are normal in size. An acute CVA is not iden tified. IMPRESSION: 1. No intracranial hemorrhage or acute finding noted. (MIRANDA BATISTA APRN) Heart Score C/O Chest Pain: No Risk Factors: Risk Factors: DM, Current or recent (<one month) smoker, HTN, HLP, family history of CAD, obesity. Risk Scores: Risk Factors: DM, Current or recent (<one month) smoker, HTN, HLP, family history of CAD, obesity. (MIRANDA BATISTA APRN) Course & Med Decision Making Course & Med Decision Making Pertinent Labs and Imaging studies reviewed. (See chart for details) 72-year-old male, vital signs reviewed, presents to the ER with daughter with concerns for Makenna psych evaluation related to patient yelling and screaming at home and that people are trying to kill him. Patient was sent here after an appointment at Dr. Andrea's office for EEG. Patient physical appearance is unremarkable, currently he is calm and cooperative. Patient's daughter interprets at bedside Telugu language. Patient's daughter reports he is not speaking and normal language however this is not a new onset for him. Patient's daughter reports concerns for Makenna psych evaluation for started weeks ago however noticed a significant change in the past 3 days. Will order CBC, CMP, urinalysis assay, acetaminophen, salicylate, alcohol level, urine drugs of abuse, COVID testing for Makenna psych placement, CT head without contrast, PAT promotions team leader evaluation. PAT promotions team leader Huber at bedside with patient. PAT promotions team leader Huber reports will complete admission process and placement after PCR COVID testing is completed. At 2200, off going report given to ED attending physician Dr. Joseph. Patient remains in no apparent distress, resting comfortably in room, PCR COVID testing pending at this time. (MIRANDA BATISTA APRN) Course & Med Decision Making Pt. awaiting PCR- results for Makenna Psych placement. See Kristin Batista chart for detail prior shift change. Endorsed to Dr. Cleaya at shift change pending geriatric psych placement. COVID PCR- Negative (ZONIA JOSEPH MD) Dragon Disclaimer Dragon Disclaimer This electronic medical record was generated, in whole or in part, using a voice recognition dictation system. (MIRANDA BATISTA APRN) Departure Departure: Referrals: AMALIA LUTHRE NP (PCP) Attending Signature Attending Signature I have participated in the care of this patient and I have reviewed and agree with all pertinent clinical information above including history, exam, and recommendations. (ZONIA JOSEPH MD) Attending Signature I have participated in the care of this patient and I have reviewed and agree with all pertinent clinical information above including history, exam, and recommendations. (MIRANDA BATISTA APRN) Dragon Disclaimer This chart was dictated in whole or in part using Voice Recognition software in a busy, high-work load, and often noisy Emergency Department environment. It may contain unintended and wholly unrecognized errors or omissions. (ZONIA JOSEPH MD) MIRANDA BATISTA APRN Aug 27, 2021 20:22 ZONIA JOSEPH MD Aug 27, 2021 22:17
--- NOTE | 2021-08-27 21:00 | RAD ---
CT brain without contrast. HISTORY: Mental status change CT scan of the brain was done without contrast. Sinuses are clear. A skull fracture is not identified . There is artifact off the device on the right there is no intracranial hemorrhage or subdural hemat rudi. There is no mass effect or shift of the midline. Ventricles are normal in size. An acute CVA is not identified. IMPRESSION: 1. No intracranial hemorrhage or acute finding noted. PQRS Compliance Statement: One or more of the following individualized dose reduction techniques were utilized for this examinat ion: 1. Automated exposure control 2. Adjustment of the mA and/or kV according to patient size 3. Use of iterative reconstruction technique Electronically signed by: David Zarate MD (08/27/2021 8:58 PM) [facility]
[2021-08-28] MEDS ORDERED: LORA-254 PO (17:22)
[2021-08-28] MEDS ORDERED: LORazepam 1 MG TABLET PO ONE (17:30)
[2021-08-28 17:49] VITALS: BP 123/66
== END 2021-08-28 17:51 ==
LOC: ER 10:57
DX: F91.9 Conduct disorder, unspecified (principal); F03.90 Unspecified dementia, unspecified severity, without behavioral disturbance, psychotic disturbance, mood disturbance, and anxiety; R41.82 Altered mental status, unspecified; E11.9 Type 2 diabetes mellitus without complications; Z86.73 Personal history of transient ischemic attack (TIA), and cerebral infarction without residual deficits; Z20.822 Contact with and (suspected) exposure to COVID-19
CPT/HCPCS: 36415; 70450; 80053; 80307; 80329; 81001; 85025; 87426; 93005; 99285; G0480; U0003

== ENCOUNTER 2021-09-07 16:40 | Emergency (ER) | payer MEDICARE ==
[~2021-09-07] VITALS: Ht 167.6 cm; Wt 65.0 kg
[~2021-09-07 16:40] MED LIST changes: +LORA-254 PO
--- NOTE | 2021-09-07 18:02 | EKG ---
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
--- NOTE | 2021-09-07 18:04 | RAD ---
EXAM: AP View of the chest DATE: 09/07/2021 5:54 PM INDICATION: Reason: ams / Spl. Instructions: / History: COMPARISON: No Prior FINDINGS: The heart is not enlarged. Aortic calcifications are seen. Mediastinal and hilar contours are normal. No focal parenchymal airspace opacity. No pleural effusion or pneumothorax. IMPRESSION: 1. No radiographic evidence for acute cardiopulmonary process. Electronically signed by: Howie Quach MD (09/07/2021 6:02 PM) [facility]
--- NOTE | 2021-09-07 18:10 | RAD ---
CT ABDOMEN+PELVIS WO History: Abdominal distention Comparison: None. Technique: Noncontrast CT of the abdomen and pelvis. Findings: Lung bases are clear. Calcification of the coronary arteries. The liver is unremarkable. Small stones in the gallbladder. The pancreas and adrenal glands are unremarkable. Punctate calcifications in the spleen likely granulomatous disease. Bilateral mild hydronephrosis. Severe enlargement of the bladde r measuring 20 x 12 x 14 cm, approximately 1.7 L. Irregular wall thickening at the posterior bladder. Mildly enlarged prostate with funneled appearance, likely postprocedural. The stomach is decompressed. Small bowel is unremarkable. Mild colonic stool burden. Mild wall thicke ruma at the sigmoid colon may represent under distention. Atherosclerotic calcification of the aorta and iliac arteries. No significant adenopathy. Soft tissues are unremarkable. Osseous structures are within normal limits for age. Impression: 1. Marked distention of the bladder with mild bilateral hydronephrosis concerning for outlet obstruc tion. Irregular nodular appearance of the posterior bladder wall concerning for possible urothelial m alignancy. Findings discussed with JABARI MITCHELL APRN at 09/07/2021 6:08 PM. FOR INTERNAL CODING PURPOSES RESULT CODE: (C) ------ Exposure: One or more of the following individualized dose reduction techniques were utilized for thi s examination: 1. Automated exposure control 2. Adjustment of the mA and/or kV according to patient size 3. Use of iterative reconstruction technique. Electronically signed by: Mohamud Choe MD (09/07/2021 6:08 PM) [facility]
--- NOTE | 2021-09-07 18:35 | PHYS DOC ---
Past History Past Medical History: Diabetes, TIA Additional Past Medical Histor: hearing (JABARI MITCHELL APRN) Past Surgical History: Other Additional Past Surgical Histo: hearing (JABARI MITCHELL APRN) Alcohol Use: None (JABARI MITCHELL APRN) General Adult EDM: Chief Complaint: BLOOD IN URINE HPI: HPI: Patient is a 71-year-old male presents with blood in his urine. Patient is complaining of abdominal pain complaining that he is unable to urinate. Patient stating his belly feels distended. Family states "he has been acting angry and altered all day long". Patient has history of anxiety, depression, TIA, diabetes. (JABARI MITCHELL APRN) Review of Systems: Review of Systems: ROS At least 10 ROS systems have been reviewed and are negative except as documented in the HPI. General: Negative except as outlined in HPI above. Skin: Negative except as outlined in HPI above. HEENT: Negative except as outlined in HPI above. Neck: Negative except as outlined in HPI above. Respiratory: Negative except as outlined in HPI above.. Cardiovascular: Negative except as outlined in HPI above. Abdomen: Negative except as outlined in HPI above. : Negative except as outlined in HPI above. Back/MSK: Negative except as outlined in HPI above. Neuro: Negative except as outlined in HPI above. Psych: Negative except as outlined in HPI above. (JABARI MITCHELL APRN) Allergies: Allergies: Allergies Coded Allergies Type Severity Reaction Last Updated Verified No Known Drug Allergies 04/23/20 No (JABARI MITCHELL APRN) Physical Exam: PE: Constitutional: Well developed, well nourished, no acute distress, non-toxic appearance. [] HENT: Normocephalic, atraumatic, bilateral external ears normal, oropharynx moist, no oral exudates, nose normal. [] Eyes: PERRLA, EOMI, conjunctiva normal, no discharge. [] Neck: Normal range of motion, no tenderness, supple, no stridor. [] Cardiovascular:Heart rate regular rhythm, no murmur [] Lungs & Thorax: Bilateral breath sounds clear to auscultation [] Abdomen: Bowel sounds normal, abdomen is distended Skin: Warm, dry, no erythema, no rash. [] Back: No tenderness, no CVA tenderness. [] Extremities: No tenderness, no cyanosis, no clubbing, ROM intact, no edema. [] Neurologic: Alert and oriented X 3, normal motor function, normal sensory function, no focal deficits noted. [] Psychologic: Affect normal, judgement normal, mood normal. [] (JABARI MITCHELL APRN) EKG: EKG: [] (JABARI MITCHELL APRN) Radiology/Procedures: Radiology/Procedures: []EXAM: AP View of the chest DATE: 09/07/2021 5:54 PM INDICATION: Reason: ams / Spl. Instructions: / History: COMPARISON: No Prior FINDINGS: The heart is not enlarged. Aortic calcifications are seen. Mediastinal and hilar contours are normal. No focal parenchymal airspace opacity. No pleural effusion or pneumothorax. IMPRESSION: 1. No radiographic evidence for acute cardiopulmonary process. Electronically signed by: Howie Quach MD (09/07/2021 6:02 PM) [facility] CT ABDOMEN+PELVIS WO History: Abdominal distention Comparison: None. Technique: Noncontrast CT of the abdomen and pelvis. Findings: Lung bases are clear. Calcification of the coronary arteries. The liver is unremarkable. Small stones in the gallbladder. The pancreas and adrenal glands are unremarkable. Punctate calcifications in the spleen likely granulomatous disease. Bilateral mild hydronephrosis. Severe enlargement of the bladder bebe uring 20 x 12 x 14 cm, approximately 1.7 L. Irregular wall thickening at the posterior bladder. Mildly enlarged prostate with funneled appearance, likely postprocedural. The stomach is decompressed. Small bowel is unremarkable. Mild colonic stool burden. Mild wall thickening at the sigmoid colon may represent under distention. Atherosclerotic calcification of the aorta and iliac arteries. No significant adenopathy. Soft tissues are unremarkable. Osseous structures are within normal limits for age. Impression: 1. Marked distention of the bladder with mild bilateral hydronephrosis concerning for outlet obstruction. Irregular nodular appearance of the posterior bladder wall concerning for possible urothelial malignancy. Findings discussed with JABARI MITCHELL APRN at 09/07/2021 6:08 PM. FOR INTERNAL CODING PURPOSES RESULT CODE: (C) ------ Exposure: One or more of the following individualized dose reduction techniques were utilized for this examination: 1. Automated exposure control 2. Adjustment of the mA and/or kV according to patient size 3. Use of iterative reconstruction technique. Electronically signed by: Mohamud Choe MD (09/07/2021 6:08 PM) [facility] (JABARI MITCHELL APRN) Heart Score: C/O Chest Pain: No Risk Factors: Risk Factors: DM, Current or recent (<one month) smoker, HTN, HLP, family history of CAD, obesity. Risk Scores: Score 0 - 3: 2.5% MACE over next 6 weeks - Discharge Home Score 4 - 6: 20.3% MACE over next 6 weeks - Admit for Clinical Observation Score 7 - 10: 72.7% MACE over next 6 weeks - Early Invasive Strategies (JABARI MITCHELL APRN) Course & Med Decision Making: Course & Med Decision Making Pertinent Labs and Imaging studies reviewed. (See chart for details) [] 71-year-old male presents with blood in his urine. Patient was complaining of abdominal pain and trouble urinating. Abdomen is distended. Work-up in ER consisted of labs, UA, CT abdomen pelvis, chest x-ray. Urinary catheter placed. Urine is very dark in color. BUN 47, creatinine 1.9 CT abdomen and pelvis suspicious for posterior bladder wall mass. Discussed results with family. Urine is positive for infection. Patient given Rocephin. Dr. Guerrero spoke with Dr. Yo, hospitalist, at [facility]. Dr. Yo agreed to accept patient for UTI, altered mental status. (JABARI MITCHELL APRN) Course & Med Decision Making I was the Attending physician on the above date of service of this patient. This patient was evaluated, examined, treated, and dispositioned from the emergency department by the mid-level practitioner. I reviewed ER work-up with midlevel practitioner and agreed to need for transfer for urology services Electronically signed, Iveth Guerrero DO (MILLE LACSIVETH Disclaimer: Víctor Disclaimer: This electronic medical record was generated, in whole or in part, using a voice recognition dictation system. (JABARI MITCHELL APRN) Departure Departure: Impression: Primary Impression: UTI (urinary tract infection) Qualified Codes: N30.01 - Acute cystitis with hematuria Additional Impression: AMS (altered mental status) Qualified Codes: R41.82 - Altered mental status, unspecified Disposition: 02 SHORT TERM HOSPITAL Condition: STABLE Referrals: AMALIA LUTHER LACTATION SPECIALIST (PCP) JABARI MITCHELL APRN Sep 07, 2021 18:35 IVETH GUERRERO DO Sep 09, 2021 06:06
[2021-09-07 18:39] LABS: BILIRUBIN,URINE SMALL (NEG); CLARITY,URINE CLOUDY; COLOR,URINE BROWN; GLUCOSE,URINE NEG (NEG); NITRITE,URINE POS (NEG); RBC,URINE >40 /HPF (0-2); UROBILINOGEN,URINE 0.2 mg/dL (0.2 mg/dL)
[2021-09-07 18:40] LABS: AMORPHOUS SEDIMENT,UR PRESENT /HPF; BACTERIA,URINE FEW /HPF (0-FEW); SQUAMOUS EPITHELIAL CELL,UR OCC /LPF
[2021-09-07 18:55] LABS: BASO # 0.1 x10^3/uL (0.0-0.2); BASO % 1 % (0-3); EOS # 0.1 x10^3/uL (0.0-0.7); EOS % 1 % (0-3); HEMATOCRIT 32.8 % (39.0-53.0); HEMOGLOBIN 11.3 g/dL (13.0-17.5); LYMPH # 0.8 x10^3/uL (1.0-4.8); LYMPH % 9 % (24-48); MEAN CORPUSCULAR HEMOGLOBIN 33 pg (25-35); MEAN CORPUSCULAR HGB CONC 34 g/dL (31-37); MEAN CORPUSCULAR VOLUME 95 fL (79-100); MONO # 0.9 x10^3/uL (0.0-1.1); MONO % 9 % (0-9); NEUT # 7.9 x10^3uL (1.8-7.7); NEUT % 81 % (31-73); PLATELET COUNT 197 x10^3/uL (140-400); RED BLOOD COUNT 3.46 x10^6/uL (4.30-5.70); RED CELL DISTRIBUTION WIDTH 13.8 % (11.5-14.5); WHITE BLOOD COUNT 9.7 x10^3/uL (4.0-11.0)
[2021-09-07 19:13] LABS: CALCIUM 9.3 mg/dL (8.5-10.1); CREATININE 1.9 mg/dL (0.7-1.3); POTASSIUM 3.8 mmol/L (3.5-5.1)
[2021-09-07 19:15] LABS: ALBUMIN 3.8 g/dL (3.4-5.0); TOTAL BILIRUBIN 0.7 mg/dL (0.2-1.0); TOTAL PROTEIN 7.7 g/dL (6.4-8.2)
[2021-09-07] MEDS ORDERED: cefTRIAXone SODIUM 1 GM VIAL ONE (19:17)
[2021-09-07] MEDS ORDERED: IV NORMAL SALINE 50ML 50 ML ONE (19:17)
[2021-09-07] MEDS ORDERED: SMZ/TMP 800/160MG TABLET. PO ONE (20:15)
[2021-09-07 20:29] LABS: INFLUENZA A PATIENT NEGATIVE (NEGATIVE); INFLUENZA B PATIENT NEGATIVE (NEGATIVE)
[2021-09-07 21:27] VITALS: BP 156/73
== END 2021-09-07 22:43 | disposition short-term general hospital (02) ==
LOC: ER 16:40
DX: N39.0 Urinary tract infection, site not specified (principal); R41.82 Altered mental status, unspecified; Z20.822 Contact with and (suspected) exposure to COVID-19
CPT/HCPCS: 36415; 71045; 74176; 80053; 81001; 85025; 87086; 87428; 93005; 96365; 99285; C9803; J0696; U0003

== ENCOUNTER 2021-09-15 21:47 | Emergency (ER) | payer MEDICARE ==
[~2021-09-15] VITALS: Ht 160 cm; Wt 60.0 kg
--- NOTE | 2021-09-15 23:15 | PHYS DOC ---
Past History Past Medical History: Dementia, Diabetes, TIA Additional Past Medical Histor: hearing (LALITHA HOFFMAN) Past Surgical History: No Surgical History (LALITHA HOFFMAN) Alcohol Use: None Drug Use: None (LALITHA HOFFMAN) General Adult EDM: Chief Complaint: URINE CATHETER PROBLEM HPI: HPI: Patient is a 71 year old male with PMHx of dementia, nonverbal, who presents with blood in urine after pulling on jesus catheter. Patient's family member is at bedside and aids in providing history. Patient is incontienent to urine, so a jesus catheter was placed while he was in a rehab facility. Today, he pulled the catheter tubing off of his leg and attempted to take out the catheter from his urethra. His urine is now visibly pink in the catheter bag without drainage or bleeding from around the catheter in the urethra. No further history can be obtained secondary to nonverbal status. (LALITHA HOFFMAN) Review of Systems: Review of Systems: Unable to be obtained secondary to patient's baseline mental status. (LALITHA HOFFMAN) Allergies: Allergies: Allergies Coded Allergies Type Severity Reaction Last Updated Verified No Known Drug Allergies 04/23/20 No (LALITHA HOFFMAN) Physical Exam: PE: Constitutional: Well developed, well nourished, no acute distress, non-toxic appearance. HENT: Normocephalic, atraumatic, bilateral external ears normal, oropharynx moist, no oral exudates, nose normal. Eyes: EOMI, conjunctiva normal, no discharge. Abdomen: Bowel sounds normal, soft, no tenderness, no masses, no pulsatile masses. Genital: Appropriate and symmetrical hair growth pattern. Penis is circumcised. Jesus catheter in place without drainage of fluid or blood around catheter in urethra, no urethral discharge, no rash or other skin lesions, no swelling. Skin: Warm, dry, no erythema, no rash. Extremities: No tenderness, no cyanosis, no clubbing, ROM intact, no edema. (LALITHA HOFFMAN) Current Patient Data: Labs: Laboratory Tests Test 09/15/21 23:37 Urine Collection Type Unknown Urine Color Yellow Urine Clarity Clear Urine pH 6.5 Urine Specific [place] 1.010 Urine Protein 30 mg/dl (NEG-TRACE) Urine Glucose (UA) Neg mg/dL (NEG) Urine Ketones (Stick) Neg mg/dL (NEG) Urine Blood Large (NEG) Urine Nitrite Neg (NEG) Urine Bilirubin Neg (NEG) Urine Urobilinogen Dipstick 0.2 mg/dL (0.2 mg/dL) Urine Leukocyte Esterase Small (NEG) Urine RBC 1-2 /HPF (0-2) Urine WBC 5-10 /HPF (0-4) Urine Squamous Epithelial Cells None /LPF Urine Bacteria Few /HPF (0-FEW) Vital Signs: Vital Signs Date Time Temp Pulse Resp B/P (MAP) Pulse Ox O2 Delivery O2 Flow Rate FiO2 09/15/21 22:01 98.2 103 16 97 (LALITHA HOFFMAN) Heart Score: C/O Chest Pain: N/A (LALITHA HOFFMAN) Course & Med Decision Making: Course & Med Decision Making Pertinent Labs and Imaging studies reviewed. (See chart for details) Patient is a 71 year old demented male who presents with a jesus catheter issue. He has blood in his urine after "tugging" on the catheter tubing. Workup today will consist of UA as well as jesus catheter replacement, as the integrity of the catheter balloon is compromised. Return precautions discussed with patient's family member at bedside. They are also instructed to follow up with Dr. Gavni in the next week or so. Family member understands and is agreeable to discharge plan. (LALITHA HOFFMAN) Dragon Disclaimer: Dragon Disclaimer: This electronic medical record was generated, in whole or in part, using a voice recognition dictation system. (LALITHA HOFFMAN) Departure Departure: Impression: Primary Impression: Jesus catheter problem Qualified Codes: T83.9XXA - Unspecified complication of genitourinary prosthetic device, implant and graft, initial encounter Additional Impressions: Catheter (urine) change required Urinary tract infection Qualified Codes: N30.01 - Acute cystitis with hematuria Disposition: HOME / SELF CARE / HOMELESS Condition: IMPROVED Referrals: AMALIA LUTHER NP (PCP) Patient Instructions: Jesus Catheter Care, Adult Additional Instructions: EMERGENCY DEPARTMENT GENERAL DISCHARGE INSTRUCTIONS Thank you for coming to [facility] (ED) today and trusting us with you care. We trust that you had a positive experience in our Emergency Department. If you wish to speak to the department management, you may call the director at [phone]. YOUR FOLLOW UP INSTRUCTIONS ARE FOLLOWS: 1. Follow up with your primary care doctor. If you do not have a primary doctor, please ask for a resource list of physicians or clinics that may be able to assist you with follow up care. 2. The emergency provider has interpreted your imaging studies, if any were ordered. The radiology customer account specialist also reviewed them. If there is a change in the findings, you will be notified in 48 hours when at all possible. 3. If a lab test or culture has been done, your results will be reviewed and you will be notified if you need a change in treatment. 4. Follow instructions verbalized to you and refer to the printouts if needed. ADDITIONAL INSTRUCTIONS AND INFORMATION: 1. Your care today has been supervised by a physician who is specially trained in emergency care. Many problems require more than one evaluation for a complete diagnosis and treatment. We recommend that you schedule your follow up appointment as recommended to ensure complete treatment of you illness or injury. If you are unable to obtain follow up care and continue to have a problem, or if your condition worsens, we recommend that you return to the ED. 2. We are not able to safely determine your condition over the phone nor are we able to give sound medical advice over the phone. For these safety reasons, if you call for medical advice we will ask you to come to the ED for further evaluation. 3. If you have any questions regarding these discharge instructions please call the ED at [phone]. SAFETY INFORMATION: In the interest of safety, wellness, and injury prevention; we encourage you to wear your seat belt, if you smoke; quite smoking, and we encourage family to use a protective helmet for bicycling and other sporting events that present an increased risk for head injury. IF YOUR SYMPTOMS WORSEN OR NEW SYMPTOMS DEVELOP, OR YOU HAVE CONCERNS ABOUT YOUR CONDITION; OR IF YOUR CONDITION WORSENS WHILE YOU ARE WAITING FOR YOUR FOLLOW UP APPOINTMENT; EITHER CONTACT YOUR PRIMARY CARE DOCTOR, THE PHYSICIAN WHOSE NAME AND NUMBER YOU WERE GIVEN, OR RETURN TO THE ED IMMEDIATELY. Scripts Cefuroxime Axetil (CEFUROXIME) 500 Mg Tablet 1 TAB PO BID for UTI for 7 Days, #14 TAB 0 Refills Prov: LALITHA HOFFMAN PA 09/16/21 Attending Signature Attending Signature I have reviewed the PA/PLATE FITTER's note and plan of care. I was available for consultation as needed during the patient's visit in the emergency department. I agree with the clinical impression, plan, and disposition. (MIRANDA TYLER DO) LALITHA HOFFMAN Sep 15, 2021 23:15 MIRANDA TYLER DO Sep 16, 2021 01:29
[2021-09-16 00:09] LABS: BILIRUBIN,URINE NEG (NEG); CLARITY,URINE CLEAR; COLOR,URINE YELLOW; GLUCOSE,URINE NEG (NEG)
[2021-09-16 00:10] LABS: BACTERIA,URINE FEW /HPF (0-FEW); NITRITE,URINE NEG (NEG); UROBILINOGEN,URINE 0.2 mg/dL (0.2 mg/dL)
[2021-09-16] MEDS ORDERED: CEFU500T46 PO (00:48)
[2021-09-20] MEDS ORDERED: GLIP5TAB10 PO (22:54)
[2021-09-20] MEDS ORDERED: CEFD300C PO (22:54)
[2021-09-20] MEDS ORDERED: LOSA50TA86 PO (22:54)
[2021-09-20] MEDS ORDERED: LORA-254 PO (22:54)
[2021-09-20] MEDS ORDERED: METF10007 PO (22:54)
[2021-09-20] MEDS ORDERED: ATOR20TA58 PO (22:54)
[2021-09-20] MEDS ORDERED: AMLO-186 PO (22:54)
[2021-09-20] MEDS ORDERED: ROPI0.5T4 PO (22:54)
[2021-09-20] MEDS ORDERED: FINA5TAB4 PO (22:54)
[2021-09-20] MEDS ORDERED: FLUO20TA11 PO (22:54)
[2021-09-20] MEDS ORDERED: TAMS0.4C97 PO (22:54)
[2021-09-23] MEDS ORDERED: RISP1TAB88 PO (09:51)
[2021-09-23] MEDS ORDERED: ARIP5TAB13 PO (09:51)
[2021-09-23] MEDS ORDERED: SERT100T PO (09:51)
[2021-09-23] MEDS ORDERED: CEFD300C PO (09:51)
== END 2021-09-16 00:18 | disposition home or self-care (01) ==
LOC: ER 21:47
DX: T83.9XXA Unspecified complication of genitourinary prosthetic device, implant and graft, initial encounter (principal); N30.01 Acute cystitis with hematuria; F03.90 Unspecified dementia, unspecified severity, without behavioral disturbance, psychotic disturbance, mood disturbance, and anxiety; E11.9 Type 2 diabetes mellitus without complications; Z86.73 Personal history of transient ischemic attack (TIA), and cerebral infarction without residual deficits
CPT/HCPCS: 51702; 81001; 87086; 99283; 99284